=== PATIENT | female | born 1995 | race Two or more races ===

== ENCOUNTER 2024-04-18 03:41 | Emergency (ER) | payer SELFPAY ==
[~2024-04-18] VITALS: Ht 162.6 cm; Wt 104.0 kg
[2024-04-18] MEDS ORDERED: HYDR-4902 PO (04:59)
[2024-04-18] MEDS ORDERED: DexAMETHasone SOD PHOS 10MG/1ML VIAL INJ IV ONE (05:00)
[2024-04-18 05:35] VITALS: BP 125/75; PULSE 98; RESP 18; TEMP 98.1; O2SAT 97
[2024-04-18] MEDS: DexAMETHasone SOD PHOS 10MG/1ML VIAL INJ IM ONE (06:01)
[2024-04-18] MEDS: KETOROLAC TROMETH 60MG/2ML VIAL IM ONE (06:02)
[2024-04-18] MEDS: HYDROcodone-ACET 5/325MG TAB PO ONE (06:03)
== END 2024-04-18 06:06 | disposition home or self-care (01) ==
LOC: ER 03:41
DX: S83.8X2A Sprain of other specified parts of left knee, initial encounter (principal); W18.39XA Other fall on same level, initial encounter; Y93.89 Activity, other specified; Y92.89 Other specified places as the place of occurrence of the external cause; Y99.8 Other external cause status
CPT/HCPCS: 73562; 96372; 99284; J1100; J1885